=== PATIENT | male | born 1995 | race Caucasian/White ===

== ENCOUNTER 2017-10-09 13:34 | Emergency (ER) | payer BC ==
[~2017-10-09] VITALS: Ht 182.9 cm; Wt 124.5 kg
[2017-10-09 14:54] VITALS: BP 131/75; PULSE 102; TEMP 97.3
== END 2017-10-09 14:57 | disposition home or self-care (01) ==
LOC: COL.ER 13:34
DX: S93.401A Sprain of unspecified ligament of right ankle, initial encounter (principal); X50.1XXA Overexertion from prolonged static or awkward postures, initial encounter; Y92.410 Unspecified street and highway as the place of occurrence of the external cause